=== PATIENT | male | born 1985 | race Caucasian/White ===

== ENCOUNTER 2017-02-09 14:40 | Emergency (ER) | payer OTHER ==
[~2017-02-09] VITALS: Ht 182.9 cm; Wt 75.0 kg
[2017-02-09 14:43] VITALS: TEMP 36.7; Ht 182.9 cm; Wt 75.0 kg
[2017-02-09] MEDS ORDERED: SERT25TA PO (15:00)
[2017-02-09] MEDS ORDERED: IBUP-1050 PO (15:00)
[2017-02-09] MEDS ORDERED: KETOROLAC TROMETHAMINE 60 MG/2 ML VIAL IM STA (15:22)
[2017-02-09] MEDS ORDERED: MoRPHine SULFATE 10 MG/ML CARP/VIAL IM STA (15:22)
[2017-02-09] MEDS ORDERED: IBUP-1451 PO (15:27)
[2017-02-09] MEDS ORDERED: OXYC1TAB3 PO (15:27)
[2017-02-09] MEDS ORDERED: CYCL10TA6 PO (15:27)
[2017-02-09] MEDS ORDERED: ONDANSETRON 4MG OD TAB PO ONE (15:30)
[2017-02-09] MEDS ORDERED: HYDROmorphone INJ 1 MG/ML SYR IM STA (17:02)
[2017-02-09 18:13] VITALS: BP 116/70; PULSE 90; O2SAT 97
--- NOTE | 2017-02-09 18:14 | EMERGENCY ROOM VISIT NOTE ---
History First contact with patient: 14:57 Chief Complaint: BACK PAIN Stated Complaint: BACK PAIN History of Present Illness The patient is a 31 year old male who presents to the Emergency Room with complaints of back pain and discomfort since injuring his back at work on Wednesday. 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 The patient reports that his back started to hurt throughout the day of work. He denies any other known preceding activities that would have injured his back. The patient reports that the pain has progressively worsened over the past few days. He currently denies any pain extending into the buttocks or legs. He denies any history of prior back injuries or fractures. He has not contacted his PCP regarding his current symptoms, nor has he filled out any Worker's Compensation paperwork. He has tried multiple OTC medications without relief, and rates his discomfort a 10 out of 10. Review of Systems 10 system review was performed and was negative except for pertinent positives and negatives as indicated in history of present illness Past Medical/Surgical History Medical Problems: (1) Closed right scapular fracture (2) Mandible fracture Surgical Problems: (1) History of eye surgery (2) History of mandibular surgery Family History FH: cancer FH: kidney disease Social History Smoking Status: Current Every Day Smoker Alcohol Use: none Marital Status: single Housing Status: lives with significant other Occupation Status: employed Current/Historical Medications Scheduled Cyclobenzaprine Hcl (Flexeril), 10 MG PO TID Ibuprofen Tab (Motrin), 800 MG PO Q8H Sertraline (Zoloft), 1 TAB PO DAILY Scheduled PRN Oxycodone Ir (Roxicodone Ir), 1-2 TAB PO Q4H PRN for Pain Allergies Coded Allergies: No Known Allergies (Verified , 02/09/17) Physical Exam Vital Signs Date Time Temp Pulse Resp B/P (MAP) Pulse Ox O2 Delivery O2 Flow Rate FiO2 02/09/17 17:19 81 16 126/69 97 Room Air 02/09/17 14:43 36.7 96 16 128/79 96 Room Air Physical Exam CONSTITUTIONAL: Healthy and well nourished. Alert and oriented X 3 with positive affect. The patient appears in moderate discomfort and pain. HEENT: Normocephalic, atraumatic. Pupils equal, round and reactive. NECK: Full active range of motion without discomfort. RESPIRATORY: Clear to auscultation bilaterally with no wheezing, crackles, rhonchi or stridor. CARDIOVASCULAR: Regular rate and rhythm with no murmurs, rubs or gallops. GASTROINTESTINAL: Bowel sounds present in all quadrants. MUSCULOSKELETAL: Examination shows notable tenderness to palpation of the thoracic and lumbar paraspinous muscles, right worse than left. No rigidity noted. He has tenderness to the medial right scapular border. Pelvis stable with rock. Negative logroll. Negative straight leg raise. INTEGUMENTARY: No rash or other significant dermatologic conditions noted. NEUROLOGIC: No focal neurologic deficits noted. Medical Decision & Procedures Medications Administered Medications (Trade) Dose Ordered Sig/Kuldeep Route Start Time Stop Time Status Last Admin Dose Admin Morphine Sulfate (MoRPHine SULFATE INJ) 10 mg NOW STAT IM 02/09/17 15:22 02/09/17 15:24 DC 02/09/17 15:52 10 MG Ketorolac Tromethamine (Toradol Inj) 60 mg NOW STAT IM 02/09/17 15:22 02/09/17 15:24 DC 02/09/17 15:52 60 MG Ondansetron HCl (Zofran Odt) 4 mg ONE ONCE PO 02/09/17 15:30 02/09/17 15:31 DC 02/09/17 15:51 4 MG Hydromorphone HCl (Dilaudid Inj) 1 mg ONE STAT IM 02/09/17 17:02 02/09/17 17:04 DC 02/09/17 17:20 1 MG ED Course Patient history and physical exam were performed. Nurse's notes were reviewed. Vital signs were reviewed and were normal. History and clinical exam findings are consistent with paraspinous strain of the thoracic and lumbar region. The patient was administered IM morphine and Toradol, along with Zofran 4 mg ODT for his pain. This only reduced his pain to an 8 out of 10. He was then administered Dilaudid 1 mg IM which further reduced his pain to a 5 out of 10. The patient was able to ambulate with better relief of his pain. The patient was encouraged to intermittently apply heat to the back. He was instructed to alternate ibuprofen and Tylenol for baseline pain relief. He was provided a prescription for ibuprofen 800 mg. He was also provided prescriptions for Flexeril and OxyIR 5 mg, dispensed #15 each with no refills. No drinking or driving while taking these medications. He was instructed to follow-up with his Worker's Compensation physician for further reevaluation and management. He is welcome to return to the emergency department for any other concerning symptoms or worsening condition. The patient was happy with plan of care, voice understanding of all discharge instructions, and rated his discomfort a 5 out of 10 at the time of discharge. Medical Decision Impression Primary Impression: Back strain Additional Impression: Work related injury Departure Information Dispostion Home / Self-Care Prescriptions Ibuprofen Tab (MOTRIN) 800 Mg Tab 800 MG PO Q8H, #30 TAB For Initial Treatment Prov: Stephen Traore PA 02/09/17 Oxycodone Ir (Roxicodone Ir) 5 Mg Tab 1-2 TAB PO Q4H Y for Pain, #15 TAB For Initial Treatment Prov: Stephen Traore PA 02/09/17 Cyclobenzaprine Hcl (FLEXERIL) 10 Mg Tab 10 MG PO TID for spasm, #15 TAB Prov: Stephen Traore PA 02/09/17 Forms HOME CARE DOCUMENTATION FORM, IMPORTANT VISIT INFORMATION Patient Instructions [facility] Additional Instructions Intermittently apply heat to back. Ibuprofen 800 mg and/or Tylenol 1000 mg every 8 hours. You may also alternate these medications for more effective pain relief: Ibuprofen --4 HRS--> Tylenol --4 HRS--> ibuprofen --4 HRS--> Tylenol .... Flexeril to prevent spasm. OxyIR as needed for worse pain. Do not drink or drive while taking these medications. FOR WORK: No lifting greater than 20 pounds for 5 days. Follow-up with your Worker's Compensation physician or approved orthopedic surgeon for further reevaluation and management - call for an appointment. Problem Qualifiers Primary Impression: Back strain Encounter type: initial encounter Qualified Codes: S39.012A - Strain of muscle, fascia and tendon of lower back, initial encounter
== END 2017-02-09 18:13 | disposition home or self-care (01) ==
LOC: C.EDB 14:43 → C.EDD 18:13
DX: S39.012A Strain of muscle, fascia and tendon of lower back, initial encounter (principal); X58.XXXA Exposure to other specified factors, initial encounter; Y92.89 Other specified places as the place of occurrence of the external cause; Y99.0 Civilian activity done for income or pay; F17.200 Nicotine dependence, unspecified, uncomplicated; Z87.81 Personal history of (healed) traumatic fracture; Z98.890 Other specified postprocedural states; Z79.899 Other long term (current) drug therapy; Z80.9 Family history of malignant neoplasm, unspecified; Z84.1 Family history of disorders of kidney and ureter